=== PATIENT | female | born 1955 | race Caucasian/White ===

== ENCOUNTER → 2017-10-26 | Outpatient (CLI) | payer BC ==
[~2017-10-26] MED LIST: ASPIR-TRIN325 MG PO; ATIVAN0.5 MG PO; CELEXA40 MG PO; CLARITIN10 MG PO; COZAAR100 MG PO; HUMALOG100 U/ML SC; KEFLEX500 MG PO; LANTUS100 U/ML SC; LEVOXYL0.088 MG PO; LOPRESSOR25 MG PO; PLAVIX75 MG PO
== END | disposition home or self-care (01) ==
LOC: US 15:56
DX: S92.492A Other fracture of left great toe, initial encounter for closed fracture (principal); E11.9 Type 2 diabetes mellitus without complications; X58.XXXA Exposure to other specified factors, initial encounter; Y93.89 Activity, other specified; Y92.89 Other specified places as the place of occurrence of the external cause; Y99.8 Other external cause status

== ENCOUNTER 2018-09-08 17:12 | Emergency (ER) | payer BC ==
[~2018-09-08] VITALS: Wt 80.7 kg
--- NOTE | ~2018-09-08 | EKG ---
[place], [place] ELECTROCARDIOGRAM REPORT NAME: SERENA AGIULLON UNIT #: [id number] ROOM: DOCTOR: EPIPHANY DRAFT REPORT BIRTHDATE: [birth year] [facility] Test Date: 2018-09-08 Test Time: 17:15:23 Pat Name: SERENA AGUILLON Department: Room: Gender: F Cake Wrapper: Lashell Gallagher : 1955 Requested By: DOMINIC HERNANDEZ Order Number: [id number] Reading MD: Shantal Cao MD Measurements Intervals [place] Rate: 82 P: 63 VT: 136 QRS: -17 QRSD: 84 T: 25 QT: 407 QTc: 476 Interpretive Statements Sinus rhythm Normal ECG Electronically Signed On 09-10-2018 13:55:34 PDT by Shantal Cao MD CM:EKGRPT:ELECTROCARDIOGRAM REPORT [id number] DOMINIC BURTON DRAFT REPORT DOMINIC HERNANDEZ DO
[2018-09-08 18:02] LABS: BASO % 0.2 % (0.0-1.0); HEMATOCRIT 37.1 % (37.0-47.0); HEMOGLOBIN 12.4 g/dl (12.0-16.0); LYMPH # 1.9 10*3/uL (1.3-4.4); LYMPH % 30.4 % (27.0-41.0); MEAN CELL VOLUME 91.4 fl (81.0-99.0); MEAN CORPUSCULAR HGB 30.5 pg (27.0-31.0); MEAN CORPUSCULAR HGB CONC 33.4 g/dl (33.0-37.0); MEAN PLATELET VOLUME 9.7 fl (9.6-12.3); MONO # 0.6 10*3/uL (0.1-1.0); MONO % 9.4 % (3.0-9.0); NEUT # 3.7 10*3/uL (2.3-7.9); NEUT % 59.7 % (47.0-73.0); PLATELET COUNT AUTOMATED 247 10*3/uL (130-400); RED BLOOD COUNT 4.06 10*6/uL (4.10-5.10); RED CELL DISTRI WIDTH 12.9 % (0-14.5); WHITE BLOOD COUNT 6.2 10*3/uL (4.8-10.8)
[2018-09-08 18:15] LABS: ACT PARTIAL THROMBO TIME 23.1 SECONDS (20.8-31.5); INTERNATIONAL NORM RATIO 0.9 (2.0-3.5)
[2018-09-08 18:28] LABS: ALBUMIN 3.8 gm/dl (3.1-4.5); ALKALINE PHOSPHATASE 111 U/L (45-117); BUN 29 mg/dl (7-24); CHLORIDE 104 mmol/L (98-107); CREATININE 1.12 mg/dL (0.55-1.02); POTASSIUM 4.2 mmol/L (3.5-5.1); SGOT/AST 12 IU/L (3-35); SGPT/ALT 21 U/L (12-78); SODIUM 137 mmol/L (136-145); TOTAL PROTEIN 7.2 gm/dL (6.4-8.2)
[2018-09-08 18:29] LABS: TROPONIN I < 0.015 ng/ml (<0.045)
== END 2018-09-08 18:47 | disposition short-term general hospital (02) ==
LOC: ED 17:12
PROVIDERS: Family Medicine
DX: I63.89 Other cerebral infarction (principal); E11.9 Type 2 diabetes mellitus without complications; Z90.710 Acquired absence of both cervix and uterus; Z98.890 Other specified postprocedural states; Z79.899 Other long term (current) drug therapy; Z88.0 Allergy status to penicillin; Z88.2 Allergy status to sulfonamides; Z79.4 Long term (current) use of insulin; Z79.82 Long term (current) use of aspirin

== ENCOUNTER 2020-06-13 12:44 | Emergency (ER) | payer BC ==
[~2020-06-13] VITALS: Ht 167.6 cm; Wt 77.1 kg
[2020-06-13 14:13] LABS: BASO % 0.1 % (0.0-1.0); LYMPH # 1.4 10*3/uL (1.3-4.4); LYMPH % 15.3 % (27.0-41.0); MEAN CELL VOLUME 91.2 fl (81.0-99.0); MEAN CORPUSCULAR HGB 29.2 pg (27.0-31.0); MEAN CORPUSCULAR HGB CONC 32.1 g/dl (33.0-37.0); MEAN PLATELET VOLUME 9.8 fl (9.6-12.3); MONO # 0.8 10*3/uL (0.1-1.0); MONO % 8.8 % (3.0-9.0); NEUT # 6.8 10*3/uL (2.3-7.9); NEUT % 75.5 % (47.0-73.0); PLATELET COUNT AUTOMATED 223 10*3/uL (130-400); RED BLOOD COUNT 3.73 10*6/uL (4.10-5.10); RED CELL DISTRI WIDTH 12.4 % (0-14.5)
[2020-06-13 14:23] LABS: ACT PARTIAL THROMBO TIME 28.8 SECONDS (20.0-32.1)
[2020-06-13 14:35] LABS: ALBUMIN 3.4 gm/dl (3.1-4.5); CREATININE 1.3 mg/dL (0.55-1.02); POTASSIUM 5.4 mmol/L (3.5-5.1); TOTAL PROTEIN 7.1 gm/dL (6.4-8.2)
[2020-06-13] MEDS ORDERED: CEPHALEXIN500 M1 PO (16:38)
== END 2020-06-13 16:48 | disposition home or self-care (01) ==
LOC: ED 12:44
PROVIDERS: Nurse Practitioner Family
DX: L03.116 Cellulitis of left lower limb (principal); Z88.0 Allergy status to penicillin; Z88.2 Allergy status to sulfonamides; Z79.899 Other long term (current) drug therapy; Z79.4 Long term (current) use of insulin; Z79.82 Long term (current) use of aspirin

== ENCOUNTER 2022-05-29 12:59 | Emergency (ER) | payer OTHER, BC ==
[~2022-05-29] VITALS: Wt 77.1 kg
[~2022-05-29 12:59] MED LIST changes: +CEPHALEXIN500 M1 PO
[2022-05-29] MEDS ORDERED: CEPHALEXIN500 M1 PO (15:49)
== END 2022-05-29 16:18 | disposition home or self-care (01) ==
LOC: ED 12:59
DX: S62.632A Displaced fracture of distal phalanx of right middle finger, initial encounter for closed fracture (principal); S61.212A Laceration without foreign body of right middle finger without damage to nail, initial encounter; Z79.899 Other long term (current) drug therapy; Z79.82 Long term (current) use of aspirin; Z88.0 Allergy status to penicillin; Z88.2 Allergy status to sulfonamides; W23.0XXA Caught, crushed, jammed, or pinched between moving objects, initial encounter; Y93.89 Activity, other specified; Y92.69 Other specified industrial and construction area as the place of occurrence of the external cause; Y99.9 Unspecified external cause status

== ENCOUNTER 2022-09-24 21:44 | Emergency (ER) | payer BC ==
[2022-09-25] MEDS ORDERED: HYDROCODONE-AC1 EAC1 PO (00:44)
[2022-09-25] MEDS ORDERED: ONDANSETRON4 MG SL (00:44)
== END 2022-09-25 00:59 | disposition home or self-care (01) ==
LOC: ED 21:44
DX: M25.562 Pain in left knee (principal); Z90.710 Acquired absence of both cervix and uterus; Z98.890 Other specified postprocedural states; Z79.899 Other long term (current) drug therapy; Z79.82 Long term (current) use of aspirin; Z88.0 Allergy status to penicillin; Z88.2 Allergy status to sulfonamides; X50.1XXA Overexertion from prolonged static or awkward postures, initial encounter; Y93.89 Activity, other specified; Y92.89 Other specified places as the place of occurrence of the external cause; Y99.8 Other external cause status

== ENCOUNTER → 2023-02-16 | Outpatient (CLI) | payer BC ==
[~2023-02-16] MED LIST changes: +HYDROCODONE-AC1 EAC1 PO; +ONDANSETRON4 MG SL
[2023-02-16 10:11] LABS: BASO % 0.1 % (0.0-1.0); HEMATOCRIT 38.7 % (37.0-47.0); LYMPH # 1.7 10*3/uL (1.3-4.4); LYMPH % 26.1 % (27.0-41.0); MEAN CELL VOLUME 92.1 fl (81.0-99.0); MEAN CORPUSCULAR HGB 30.2 pg (27.0-31.0); MEAN CORPUSCULAR HGB CONC 32.8 g/dl (33.0-37.0); MEAN PLATELET VOLUME 9.4 fl (9.6-12.3); MONO # 0.7 10*3/uL (0.1-1.0); MONO % 10.9 % (3.0-9.0); NEUT # 4.2 10*3/uL (2.3-7.9); NEUT % 62.8 % (47.0-73.0); PLATELET COUNT AUTOMATED 246 10*3/uL (130-400); RED CELL DISTRI WIDTH 13.6 % (0-14.5); WHITE BLOOD COUNT 6.7 10*3/uL (4.8-10.8)
[2023-02-16 10:35] LABS: FREE T4 1.02 ng/dl (0.89-1.76); POTASSIUM 4.6 mmol/L (3.4-5.1); TOTAL PROTEIN 6.8 gm/dL (6.0-8.0)
[2023-02-16 11:50] LABS: VITAMIN D, 25-HYDROXY 45.6 ng/mL (30-100)
== END | disposition home or self-care (01) ==
LOC: RESCLI 07:38
PROVIDERS: Student in an Organized Health Care Education/Training Program; ATTEND Internal Medicine
DX: Z00.00 Encounter for general adult medical examination without abnormal findings (principal); E11.9 Type 2 diabetes mellitus without complications; E03.9 Hypothyroidism, unspecified; F41.9 Anxiety disorder, unspecified; Z95.5 Presence of coronary angioplasty implant and graft; Z79.899 Other long term (current) drug therapy

== ENCOUNTER → 2023-03-11 | Outpatient (CLI) | payer BC | END | disposition home or self-care (01) | LOC: MAMMO 08:00 | PROVIDERS: ATTEND Student in an Organized Health Care Education/Training Program | DX: Z12.31 Encounter for screening mammogram for malignant neoplasm of breast (principal) ==

== ENCOUNTER → 2023-04-30 | Outpatient (CLI) | payer BC | END | disposition home or self-care (01) | LOC: RESCLI 16:06 | PROVIDERS: ATTEND Internal Medicine | DX: E10.9 Type 1 diabetes mellitus without complications (principal); I10 Essential (primary) hypertension; E78.5 Hyperlipidemia, unspecified; E03.9 Hypothyroidism, unspecified; G47.33 Obstructive sleep apnea (adult) (pediatric); Z88.5 Allergy status to narcotic agent; Z88.8 Allergy status to other drugs, medicaments and biological substances; Z88.2 Allergy status to sulfonamides; Z98.890 Other specified postprocedural states; Z79.899 Other long term (current) drug therapy ==